=== PATIENT | female | born 1950 ===

== ENCOUNTER 2017-09-10 10:23 | Inpatient (IN) | payer MEDICARE, OTHER ==
[2017-09-10 11:13] LABS: BASO % 0.5 % (0.0-2.0); EOS # 0.1 K/uL (0.0-0.7); EOS % 0.8 % (0.0-4.0); HEMOGLOBIN 14.1 g/dL (11.0-16.0); LYMPH # 2.5 K/uL (1.0-4.3); LYMPH % 37.4 % (20.0-40.0); MEAN CELL VOLUME 96.1 fL (81.0-99.0); MEAN CORPUSCULAR HEMOGLOBIN 32.5 pg (27.0-31.0); MEAN CORPUSCULAR HGB CONC 33.9 g/dL (33.0-37.0); MEAN PLATELET VOLUME 8.3 fL (7.2-11.7); MONO # 0.4 K/uL (0.0-0.8); MONO % 5.8 % (0.0-10.0); NEUT # 3.8 K/uL (1.8-7.0); NEUT % 55.5 % (50.0-75.0); NRBC % 0.1 % (0.0-2.0); RBC 4.33 Mil/uL (3.80-5.20); RED CELL DISTRIBUTION WIDTH 14.5 % (11.5-14.5); WHITE BLOOD COUNT 6.8 K/uL (4.8-10.8)
--- NOTE | 2017-09-10 11:17 | C.PDOC ---
History Of Present Illness 67 year old female patient with a previous history of hypercholesterolemia, Diabetes, hypothyroidism, presents to the ED for evaluation after witnessed seizure at the [facility]. She denies prior history of seizures. She states having dizziness prior to seizure episode Patient denies any chest pain or shortness of breath. Time Seen by Provider: 09/10/17 10:39 Chief Complaint (Nursing): Seizure History Per: Patient History/Exam Limitations: no limitations Recent Seizure Activity Began: Just Before Arrival Number Of Seizures: One Associated Symptoms: Incontinence Of Urine, Other (Bit her lower lip) Past Medical History Reviewed: Historical Data, Nursing Documentation, Vital Signs Vital Signs: Last Vital Signs Temp 98.8 F 09/10/17 12:22 Pulse 72 09/10/17 12:22 Resp 16 09/10/17 12:22 BP 137/74 09/10/17 12:22 Pulse Ox 98 09/10/17 12:36 - Medical History PMH: Diabetes, Hyperlipidemia, Hypothyroidism Surgical History: No Surg Hx - [facility] Procedures CUL-DE-SAC OPERATION NEC (12/04/98) CYSTOCEL/RECTOCEL REPAIR (12/04/98) LEVATOR MUSC SUSPENSION (12/04/98) OTH VAGINAL HYSTERECTOMY (12/04/98) REMOVE BOTH FALLOP TUBES (12/04/98) Family History: States: No Known Family Hx - Social History Hx Alcohol Use: No Hx Substance Use: No - Immunization History Hx Tetanus Toxoid Vaccination: No Hx Influenza Vaccination: No Hx Pneumococcal Vaccination: No Review Of Systems Except As Marked, All Systems Reviewed And Found Negative. Neurological: Positive for: Seizures, Dizziness Physical Exam - Physical Exam Appears: Non-toxic, No Acute Distress Skin: Normal Color, Warm Head: Atraumatic, Normacephalic Eye(s): bilateral: Normal Inspection, PERRL, EOMI Oral Mucosa: Moist Lips: Other (small bite to the lower lip) Neck: Normal, Supple Chest: Symmetrical Cardiovascular: Rhythm Regular, No Murmur Respiratory: Normal Breath Sounds, No Accessory Muscle Use Gastrointestinal/Abdominal: Soft, No Tenderness, No Distention Extremity: Bilateral: Atraumatic Neurological/Psych: Oriented x3, Normal Speech ED Course And Treatment - Laboratory Results Result Diagrams: 09/10/17 11:08 09/10/17 11:08 ECG: Interpreted By Me ECG Rhythm: Sinus Rhythm (at 75BPM with normal intervals, no ST/T Wave abnormalities) O2 Sat by Pulse Oximetry: 98 (RA) Pulse Ox Interpretation: Normal - Other Rad Chest XR X-Ray: Read By Radiologist Interpretation: FINDINGS: LUNGS: Clear. PLEURA: No pneumothorax or pleural fluid seen. CARDIOVASCULAR: Normal. OSSEOUS STRUCTURES: No significant abnormalities. VISUALIZED UPPER ABDOMEN: Normal. OTHER FINDINGS: None. IMPRESSION: No active disease. - CT Scan/US CT Head Other Rad Studies (CT/US): Read By Radiologist, Radiology Report Reviewed CT/US Interpretation: FINDINGS: HEMORRHAGE: No acute parenchymal, subarachnoid or extra-axial bold the the hemorrhage. BRAIN: No evidence of large acute infarct. Note that the possibility of a small hyperacute infarct cannot be excluded. No obvious parenchymal nor extra-axial mass or collection identified on this noncontrast study. Mild generalized volume loss. VENTRICLES : No obstructive hydrocephalus. CALVARIUM: No acute calvarial fractures. PARANASAL SINUSES: Unremarkable as visualized. No significant inflammatory changes. MASTOID AIR CELLS: . The right mastoid air complex is sclerotic and underpneumatized. OTHER FINDINGS: None. IMPRESSION: No acute intracranial hemorrhage. Mild generalized volume loss. Medical Decision Making Medical Decision Making: --IMPRESSION: NEW ONSET SEIZURE -CT Head Scan W/O Contrast --EKG --CMP Panel --Troponin --PTT --XR Chest One View 12:[address] Madhav Martinez. Patient will be admitted for New onset seizure. Dr. Rojas consulted and request MRI of the brain with / without contrast and EEG. Disposition Discussed With : Madhav Martinez Counseled Patient/Family Regarding: Studies Performed, Diagnosis - Disposition Disposition: HOSPITALIZED Disposition Time: 12:28 Condition: FAIR - Clinical Impression Clinical Impression: Seizure - Scribe Statement The provider has reviewed the documentation as recorded by the Scribe (Alma Rosa Dinh) Provider Attestation: All medical record entries made by the Scribe were at my direction and personally dictated by me. I have reviewed the chart and agree that the record accurately reflects my personal performance of the history, physical exam, medical decision making, and the department course for this patient. I have also personally directed, reviewed, and agree with the discharge instructions and disposition.
[2017-09-10 11:21] LABS: PROTHROMBIN TIME 10.7 SECONDS (9.7-12.2)
--- NOTE | 2017-09-10 11:28 | RAD ---
PROCEDURE: CHEST RADIOGRAPH, 1 VIEW HISTORY: chest pain COMPARISON: None available. FINDINGS: LUNGS: Clear. PLEURA: No pneumothorax or pleural fluid seen. CARDIOVASCULAR: Normal. OSSEOUS STRUCTURES: No significant abnormalities. VISUALIZED UPPER ABDOMEN: Normal. OTHER FINDINGS: None. IMPRESSION: No active disease.
[2017-09-10 11:32] LABS: ALB/GLOB RATIO 1.2 (1.0-2.1); ALT/SGPT 15 U/L (9-52); AST/SGOT 30 U/L (14-36); BLOOD UREA NITROGEN 16 mg/dL (7-17); GFR AFRICAN-AMERICAN > 60; GFR NON-AFRICAN AMERICAN > 60
--- NOTE | 2017-09-10 12:07 | CT ---
PROCEDURE: CT scan brain dated 09/10/2017 HISTORY: d dizziness COMPARISON: None available. TECHNIQUE: Helical/transaxial computed tomography images were obtained through the head/brain without intravenous contrast. Radiation dose: Total exam DLP = 973.75 mGy-cm. This CT exam was performed using one or more of the following dose reduction techniques: Automated exposure control, adjustment of the mA and/or kV according to patient size, and/or use of iterative reconstruction technique. FINDINGS: HEMORRHAGE: No acute parenchymal, subarachnoid or extra-axial bold the the hemorrhage. BRAIN: No evidence of large acute infarct. Note that the possibility of a small hyperacute infarct cannot be excluded. No obvious parenchymal nor extra-axial mass or collection identified on this noncontrast study Mild generalized volume loss. VENTRICLES: No obstructive hydrocephalus. CALVARIUM: No acute calvarial fractures. PARANASAL SINUSES: Unremarkable as visualized. No significant inflammatory changes. MASTOID AIR CELLS: . The right mastoid air complex is sclerotic and underpneumatized. OTHER FINDINGS: None. IMPRESSION: No acute intracranial hemorrhage. Mild generalized volume loss.
[2017-09-10 12:32] LABS: SQUAMOUS EPITHIAL < 1 /hpf (0-5); URINE BACTERIA RARE (<OCC); URINE BILIRUBIN NEGATIVE (NEGATIVE); URINE BLOOD 1+ (NEGATIVE); URINE CLARITY Clear (Clear); URINE COLOR Yellow (YELLOW); URINE GLUCOSE (UA) NORMAL (Normal); URINE LEUKOCYTE ESTERASE NEG Leu/uL (Negative); URINE PROTEIN 1+ mg/dL (NEGATIVE); URINE UROBILINOGEN NORMAL mg/dL (0.2-1.0)
[2017-09-10] MEDS ORDERED: Sodium Chloride 0.9% 1,000 ML ONE (13:55)
--- NOTE | 2017-09-10 14:34 | MRI ---
PROCEDURE: MRI of the brain dated 09/10/2017 HISTORY: Seizure COMPARISON: Comparison made with prior CT scan of the brain earlier same day TECHNIQUE: Multiplanar, multisequence MR images of the brain were obtained with and without intravenous contrast enhancement. Approximately 13 cc Omniscan injected for this examination. FINDINGS: HEMORRHAGE: No acute parenchymal, subarachnoid or extra-axial hemorrhage. No evidence of hemosiderin deposition is identified on gradient echo weighted sequence. DWI: No evidence of an acute or early subacute infarction seen on diffusion imaging. . BRAIN PARENCHYMA: No focal areas of abnormal of signal seen within the substance of the brain. . No evidence of significant chronic ischemic changes. Mild age-appropriate generalized volume loss. ENHANCEMENT: No enhancing parenchymal nor extra-axial masses or collections. No evidence of unusual meningeal enhancement. VENTRICLES: No obstructive hydrocephalus. CRANIUM: Unremarkable. ORBITS: Orbits and contents grossly unremarkable. 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 . Again noted is sclerotic underpneumatized right mastoid air complex VASCULAR SYSTEM: Visualized major vascular flow voids at skull base patent. OTHER FINDINGS: None . IMPRESSION: No evidence of acute intracranial hemorrhage or infarct. No enhancing lesions.
[2017-09-10] MEDS: (Novolin R) Insulin Human Regular 100 units/ml vial SC SCH ×2 (16:50→21:40)
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
[2017-09-11 06:24] LABS: BASO % 0.5 % (0.0-2.0); EOS # 0.1 K/uL (0.0-0.7); EOS % 1.2 % (0.0-4.0); HEMOGLOBIN 13.8 g/dL (11.0-16.0); LYMPH # 2.6 K/uL (1.0-4.3); LYMPH % 44.6 % (20.0-40.0); MEAN CORPUSCULAR HEMOGLOBIN 33.2 pg (27.0-31.0); MEAN CORPUSCULAR HGB CONC 34.2 g/dL (33.0-37.0); MEAN PLATELET VOLUME 8.1 fL (7.2-11.7); MONO # 0.4 K/uL (0.0-0.8); MONO % 6.9 % (0.0-10.0); NEUT # 2.7 K/uL (1.8-7.0); NEUT % 46.8 % (50.0-75.0); NRBC % 0.1 % (0.0-2.0); RBC 4.15 Mil/uL (3.80-5.20); RED CELL DISTRIBUTION WIDTH 14.4 % (11.5-14.5); WHITE BLOOD COUNT 5.8 K/uL (4.8-10.8)
[2017-09-11] MEDS ORDERED: Levothyroxine 50 MCG TAB PO SCH (06:30)
[2017-09-11] MEDS: (Novolin R) Insulin Human Regular 100 units/ml vial SC SCH ×2 (07:31→11:23)
[2017-09-11 07:54] VITALS: RESP 18; TEMP 97.9
[2017-09-11 08:17] LABS: ALB/GLOB RATIO 1.3 (1.0-2.1); ALBUMIN 3.7 g/dL (3.5-5.0); ALT/SGPT 17 U/L (9-52); AST/SGOT 28 U/L (14-36); BLOOD UREA NITROGEN 12 mg/dL (7-17); GFR AFRICAN-AMERICAN > 60; GFR NON-AFRICAN AMERICAN > 60
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
--- NOTE | 2017-09-11 09:47 | CP.PCM.PN ---
Subjective - Date & Time of Evaluation Date of Evaluation: 09/11/17 Time of Evaluation: 17:00 - Subjective Subjective: Pt seen and evalauted today Objective - Vital Signs/Intake and Output Vital Signs (last 24 hours): Temp Pulse Resp BP Pulse Ox 97.9 F 68 18 135/75 96 09/11/17 07:00 09/11/17 07:00 09/11/17 07:00 09/11/17 07:00 09/11/17 07:00 Intake and Output: 09/11/17 09/11/17 06:59 18:59 Intake Total 800 Balance 800 - Medications Medications: Current Medications Enoxaparin Sodium (Lovenox) 40 mg SC DAILY [facility] Last Admin: 09/11/17 09:23 Dose: 40 mg Insulin Human Regular (Novolin R) 0 unit SC ACHS [facility] PRN Reason: Protocol Last Admin: 09/11/17 07:31 Dose: Not Given Levothyroxine Sodium (Synthroid) 50 mcg PO DAILY@0630 [facility] Last Admin: 09/11/17 06:11 Dose: 50 mcg Metformin HCl (Glucophage) 500 mg PO DAILY [facility] Rosuvastatin Calcium (Crestor) 10 mg PO HS [facility] - Labs Labs: 09/11/17 06:16 09/11/17 06:16 PT 10.7 SECONDS (9.7-12.2) 09/10/17 11:08 INR 1.0 09/10/17 11:08 APTT 28 SECONDS (21-34) 09/10/17 11:08 Assessment and Plan (1) Seizure Status: Acute (2) Hypothyroid Status: Acute (3) Syncope and collapse Status: Acute
[2017-09-11] MEDS ORDERED: Enoxaparin 40 mg Syringe SC SCH (10:00)
[2017-09-11 15:31] VITALS: BP 119/72; PULSE 60
--- NOTE | 2017-09-11 20:27 | CARD ---
APPROVED REPORT EKG Measurement Heart [id number] <Conclusion> Normal sinus rhythm Left axis deviation Abnormal ECG
[2017-09-12 07:57] VITALS: O2SAT 98
--- NOTE | 2017-09-13 00:28 | CP.PCM.DIS ---
Provider - Provider Date of Admission: 09/10/17 12:27 Attending physician: Madhav Martinez MD Time Spent in preparation of Discharge (in minutes): 52 Diagnosis - Discharge Diagnosis (1) Seizure Status: Acute Priority: High (2) Hypothyroid Status: Acute (3) Syncope and collapse Status: Acute Hospital Course - Lab Results Lab Results: Most Recent Lab Values WBC 5.8 K/uL (4.8-10.8) 09/11/17 06:16 RBC 4.15 Mil/uL (3.80-5.20) 09/11/17 06:16 Hgb 13.8 g/dL (11.0-16.0) 09/11/17 06:16 Hct 40.2 % (34.0-47.0) 09/11/17 06:16 MCV 97.0 fL (81.0-99.0) 09/11/17 06:16 MCH 33.2 pg (27.0-31.0) H 09/11/17 06:16 MCHC 34.2 g/dL (33.0-37.0) 09/11/17 06:16 RDW 14.4 % (11.5-14.5) 09/11/17 06:16 Plt Count 190 K/uL (130-400) 09/11/17 06:16 MPV 8.1 fL (7.2-11.7) 09/11/17 06:16 Neut % (Auto) 46.8 % (50.0-75.0) L 09/11/17 06:16 Lymph % (Auto) 44.6 % (20.0-40.0) H 09/11/17 06:16 [place] % (Auto) 6.9 % (0.0-10.0) 09/11/17 06:16 Eos % (Auto) 1.2 % (0.0-4.0) 09/11/17 06:16 Baso % (Auto) 0.5 % (0.0-2.0) 09/11/17 06:16 Neut # (Auto) 2.7 K/uL (1.8-7.0) 09/11/17 06:16 Lymph # (Auto) 2.6 K/uL (1.0-4.3) 09/11/17 06:16 [place] # (Auto) 0.4 K/uL (0.0-0.8) 09/11/17 06:16 Eos # (Auto) 0.1 K/uL (0.0-0.7) 09/11/17 06:16 Baso # (Auto) 0.0 K/uL (0.0-0.2) 09/11/17 06:16 PT 10.7 SECONDS (9.7-12.2) 09/10/17 11:08 INR 1.0 09/10/17 11:08 APTT 28 SECONDS (21-34) 09/10/17 11:08 Sodium 142 mmol/L (132-148) 09/11/17 06:16 Potassium 3.9 mmol/L (3.6-5.2) 09/11/17 06:16 Chloride 103 mmol/L (98-107) 09/11/17 06:16 Carbon Dioxide 29 mmol/L (22-30) 09/11/17 06:16 Anion Gap 14 (10-20) 09/11/17 06:16 BUN 12 mg/dL (7-17) 09/11/17 06:16 Creatinine 0.7 mg/dL (0.7-1.2) 09/11/17 06:16 Est GFR ( Amer) > 60 09/11/17 06:16 Est GFR (Non-Af Amer) > 60 09/11/17 06:16 POC Glucose (mg/dL) 103 mg/dL (65-110) 09/11/17 15:51 Random Glucose 100 mg/dL (65-105) 09/11/17 06:16 Calcium 9.0 mg/dl (8.6-10.4) 09/11/17 06:16 Total Bilirubin 0.5 mg/dL (0.2-1.3) 09/11/17 06:16 AST 28 U/L (14-36) 09/11/17 06:16 ALT 17 U/L (9-52) 09/11/17 06:16 Alkaline Phosphatase 61 U/L (38-126) 09/11/17 06:16 Troponin I < 0.0120 ng/mL (0.00-0.120) 09/10/17 11:08 Total Protein 6.5 g/dL (6.3-8.3) 09/11/17 06:16 Albumin 3.7 g/dL (3.5-5.0) 09/11/17 06:16 Globulin 2.8 gm/dL (2.2-3.9) 09/11/17 06:16 Albumin/Globulin Ratio 1.3 (1.0-2.1) 09/11/17 06:16 Urine Color Yellow (YELLOW) 09/10/17 12:23 Urine Clarity Clear (Clear) 09/10/17 12:23 Urine pH 7.0 (5.0-8.0) 09/10/17 12:23 Ur Specific [place] 1.013 (1.003-1.030) 09/10/17 12:23 Urine Protein 1+ mg/dL (NEGATIVE) H 09/10/17 12:23 Urine Glucose (UA) Normal mg/dL (Normal) 09/10/17 12:23 Urine Ketones Negative mg/dL (NEGATIVE) 09/10/17 12:23 Urine Blood 1+ (NEGATIVE) H 09/10/17 12:23 Urine Nitrate Negative (NEGATIVE) 09/10/17 12:23 Urine Bilirubin Negative (NEGATIVE) 09/10/17 12:23 Urine Urobilinogen Normal mg/dL (0.2-1.0) 09/10/17 12:23 Ur Leukocyte Esterase Neg Rose/uL (Negative) 09/10/17 12:23 Urine WBC (Auto) 1 /hpf (0-5) 09/10/17 12:23 Urine RBC (Auto) 4 /hpf (0-3) H 09/10/17 12:23 Ur Squamous Epith Cells < 1 /hpf (0-5) 09/10/17 12:23 Urine Bacteria Rare (<OCC) 09/10/17 12:23 Discharge Exam - Head Exam Head Exam: ATRAUMATIC, NORMAL INSPECTION, NORMOCEPHALIC - Eye Exam Eye Exam: EOMI, Normal appearance, PERRL Pupil Exam: NORMAL ACCOMODATION, PERRL - ENT Exam ENT Exam: Mucous Membranes Moist - Respiratory Exam Respiratory Exam: Decreased Breath Sounds, Rales - Cardiovascular Exam Cardiovascular Exam: REGULAR RHYTHM, +S1, +S2 - GI/Abdominal Exam GI & Abdominal Exam: Normal Bowel Sounds Discharge Plan - Follow Up Plan Condition: FAIR Disposition: HOME/ ROUTINE Instructions: EEG, Seizures, Adult (DC) Additional Instructions: -FOLLOW UP WITH DR. MARTINEZ OR YOUR PRIMARY DOCTOR IN THE OFFICE WITHIN 1 WEEK-- --CALL FOR APPT TIME. -FOLLOW UP WITH DR. TARANGO (NEUROLOGIST) IN THE OFFICE WITHIN 1-2 WEEKS----CALL FOR APPT TIME. -DR. TARANGO MAY DO FURTHER TESTING OUTPATIENT. HE WILL DISCUSS THIS WITH YOU WHEN YOU SEE HIM. -CONTINUE SAME HOME MEDICATIONS USUAL. -NO NEW PRESCRIPTIONS. -FOR FURTHER QUESTIONS OR CONCERNS, CONTACT DR. MARTINEZ'S OFFICE. Referrals: Aleks Tarango MD [Staff Provider] - Madhav Martinez MD [Staff Provider] -
== END 2017-09-11 16:45 | disposition home or self-care (01) | DRG 101 ==
LOC: C.ER 10:23 → C.9E 12:27 → C.6T 13:13 → C.9E 13:33 → C.5S 14:17
PROVIDERS: ADMIT Internal Medicine; ATTEND Internal Medicine
DX: G40.309 Generalized idiopathic epilepsy and epileptic syndromes, not intractable, without status epilepticus (principal); R55 Syncope and collapse; E11.9 Type 2 diabetes mellitus without complications; E03.9 Hypothyroidism, unspecified; E78.00 Pure hypercholesterolemia, unspecified; E78.5 Hyperlipidemia, unspecified; Z90.710 Acquired absence of both cervix and uterus; Z87.820 Personal history of traumatic brain injury